=== PATIENT | female | born 1960 | race Caucasian/White ===

== ENCOUNTER 2021-08-14 15:17 | Inpatient (IN) | payer OTHER ==
[2021-08-14 15:47] VITALS: BMI 42.0
[2021-08-14] MEDS ORDERED: ACETAMINOPHEN 325 MG TABLET (FP) PO PRN ×2 (16:33)
[2021-08-14] MEDS ORDERED: LORazepam 1 MG TABLET PO PRN (16:33)
[2021-08-14] MEDS ORDERED: ONDANSETRON *ODT* 4 MG TABLET SL PRN (16:33)
[2021-08-14] MEDS ORDERED: NICOTINE POLACRILEX 2 MG GUM BUC PRN (16:33)
[2021-08-14] MEDS ORDERED: MAG HYDROX/AL HYDROX/SIMETH 30 ML UNIT-DOSE CUP PO PRN (16:33)
[2021-08-14] MEDS ORDERED: BISMUTH SUBSALICYLATE 524 MG/30 ML PO PRN (16:33)
[2021-08-14] MEDS ORDERED: MAGNESIUM HYDROX 2400MG/30ML ORAL SUSPENSION 30 ML CUP PO PRN (16:33)
[2021-08-14] MEDS ORDERED: DICYCLOMINE HCL 10 MG CAPSULE PO PRN (16:33)
[2021-08-14] MEDS ORDERED: MAGNESIUM CITRATE 300 ML BOTTLE PO PRN (16:33)
[2021-08-14] MEDS ORDERED: LOPERAMIDE HCL 2 MG CAPSULE PO PRN (16:33)
[2021-08-14] MEDS ORDERED: NICOTINE 10 MG CARTRIDGE (INHALER) IH PRN (16:33)
[2021-08-14] MEDS ORDERED: BENZOCAINE/MENTHOL (CHLORASEPTIC ) LOZENGE MM PRN (16:33)
[2021-08-14] MEDS: THIAMINE HCL 100 MG TABLET (FP) PO SCH (22:41)
[2021-08-14] MEDS: MELATONIN 5 MG TABLETS PO SCH (22:41)
[2021-08-14] MEDS: hydrOXYzine PAMOATE 25 MG CAPSULE (FP) PO PRN (22:42)
[2021-08-14] MEDS: LORazepam 2 MG TABLET PO SCH ×3 (22:43→23:11)
[2021-08-14] MEDS: METHOCARBAMOL 500 MG TABLET PO PRN (22:43)
[2021-08-15] MEDS: LORazepam 2 MG TABLET PO SCH ×2 (06:04→12:00)
[2021-08-15] MEDS ORDERED: methaDONE HCL 10 MG TABLET PO ONE (09:28)
[2021-08-15] MEDS ORDERED: methaDONE HCL 10 MG TABLET ONE (10:50)
[2021-08-15] MEDS: PRENATAL VITAMINS W/ FOLIC ACID TABLET (FP) PO SCH (10:51)
[2021-08-15] MEDS ORDERED: methaDONE HCL 40 MG DISPERSABLE TABLET ONE (10:51)
[2021-08-15] MEDS: amLODIPine BESYLATE 10 MG TABLET (FP) PO SCH (10:52)
[2021-08-15] MEDS: IBUPROFEN 600 MG TABLET (FP) PO PRN (10:52)
[2021-08-15 11:49] LABS: HEMATOCRIT 41.4 % (32.4-45.2); HEMOGLOBIN 13.8 GM/dL (10.7-15.3); MCH 31.7 pg (25.7-33.7); MCHC 33.3 g/dl (32.0-36.0); MEAN CELL VOLUME 94.9 fl (80-96); MEAN PLT VOLUME 8.4 fl (7.5-11.1); PLATELET COUNT 160 10^3/uL (134-434); RBC 4.36 M/mm3 (3.60-5.2); RDW 13.1 % (11.6-15.6); WHITE BLOOD COUNT 5.6 K/mm3 (4.0-10.0)
[2021-08-15 11:59] LABS: ALBUMIN 3.1 g/dl (3.4-5.0); BLOOD UREA NITROGEN 9.8 mg/dL (7-18); CALCIUM 8.5 mg/dL (8.5-10.1)
[2021-08-15 12:02] LABS: CREATININE 0.5 mg/dL (0.55-1.3)
[2021-08-15 12:04] LABS: BILIRUBIN,TOTAL 0.5 mg/dL (0.2-1); TOT PROT 6.6 g/dl (6.4-8.2)
[2021-08-15] MEDS ORDERED: ALBUTEROL SO4 0.083% IH SOL 2.5 MG/3 ML VIAL.NEB. NEB PRN (12:06)
[2021-08-15] MEDS: hydrOXYzine PAMOATE 25 MG CAPSULE (FP) PO PRN ×2 (14:01→18:10)
[2021-08-15] MEDS: LORazepam 1 MG TABLET PO SCH ×2 (18:10→23:00)
[2021-08-15] MEDS: IBUPROFEN 400 MG TABLET (FP) PO PRN (18:12)
[2021-08-15] MEDS: THIAMINE HCL 100 MG TABLET (FP) PO SCH (22:44)
[2021-08-15] MEDS: MELATONIN 5 MG TABLETS PO SCH (23:43)
[2021-08-16] MEDS ORDERED: methaDONE HCL 40 MG DISPERSABLE TABLET ONE (04:24)
[2021-08-16] MEDS ORDERED: methaDONE HCL 10 MG TABLET ONE (04:24)
[2021-08-16] MEDS: ALBUTEROL SO4 HFA INHALER IH PRN ×2 (05:29→10:36)
[2021-08-16] MEDS: LORazepam 1 MG TABLET PO SCH ×4 (05:30→22:33)
[2021-08-16] MEDS ORDERED: methaDONE HCL 40 MG DISPERSABLE TABLET PO SCH (06:00)
[2021-08-16] MEDS: PRENATAL VITAMINS W/ FOLIC ACID TABLET (FP) PO SCH (10:31)
[2021-08-16] MEDS: amLODIPine BESYLATE 10 MG TABLET (FP) PO SCH (10:32)
[2021-08-16] MEDS: hydrOXYzine PAMOATE 25 MG CAPSULE (FP) PO PRN ×2 (10:32→22:32)
[2021-08-16] MEDS: METHOCARBAMOL 500 MG TABLET PO PRN (10:32)
[2021-08-16] MEDS: IBUPROFEN 600 MG TABLET (FP) PO PRN (18:15)
[2021-08-16] MEDS: THIAMINE HCL 100 MG TABLET (FP) PO SCH (22:32)
[2021-08-16] MEDS: MELATONIN 5 MG TABLETS PO SCH (22:33)
[2021-08-17] MEDS ORDERED: LORazepam 0.5 MG TABLET PO PRN
[2021-08-17] MEDS ORDERED: methaDONE HCL 10 MG TABLET ONE (04:45)
[2021-08-17] MEDS ORDERED: methaDONE HCL 40 MG DISPERSABLE TABLET ONE (04:45)
[2021-08-17] MEDS: LORazepam 0.5 MG TABLET PO SCH ×4 (05:40→22:44)
[2021-08-17] MEDS: METHOCARBAMOL 500 MG TABLET PO PRN ×2 (05:42→10:56)
[2021-08-17] MEDS: PRENATAL VITAMINS W/ FOLIC ACID TABLET (FP) PO SCH (10:26)
[2021-08-17] MEDS: amLODIPine BESYLATE 10 MG TABLET (FP) PO SCH (10:26)
[2021-08-17] MEDS: hydrOXYzine PAMOATE 25 MG CAPSULE (FP) PO PRN ×2 (10:26→22:44)
[2021-08-17] MEDS: IBUPROFEN 600 MG TABLET (FP) PO PRN ×2 (10:29→22:44)
[2021-08-17] MEDS: THIAMINE HCL 100 MG TABLET (FP) PO SCH (22:44)
[2021-08-17] MEDS: MELATONIN 5 MG TABLETS PO SCH (22:44)
[2021-08-17] MEDS: ALBUTEROL SO4 HFA INHALER IH PRN (22:47)
[2021-08-18] MEDS ORDERED: methaDONE HCL 40 MG DISPERSABLE TABLET ONE (04:17)
[2021-08-18] MEDS ORDERED: methaDONE HCL 10 MG TABLET ONE (04:17)
[2021-08-18] MEDS ORDERED: LORazepam 0.5 MG TABLET PO ONE (05:00)
[2021-08-18] MEDS: ALBUTEROL SO4 HFA INHALER IH PRN (06:02)
[2021-08-18] MEDS: METHOCARBAMOL 500 MG TABLET PO PRN ×2 (09:55→22:39)
[2021-08-18] MEDS: hydrOXYzine PAMOATE 25 MG CAPSULE (FP) PO PRN ×3 (09:55→22:38)
[2021-08-18] MEDS: amLODIPine BESYLATE 10 MG TABLET (FP) PO SCH (09:55)
[2021-08-18] MEDS: PRENATAL VITAMINS W/ FOLIC ACID TABLET (FP) PO SCH (09:55)
[2021-08-18] MEDS: IBUPROFEN 600 MG TABLET (FP) PO PRN (10:57)
[2021-08-18] MEDS: IBUPROFEN 400 MG TABLET (FP) PO PRN (17:43)
[2021-08-18] MEDS: THIAMINE HCL 100 MG TABLET (FP) PO SCH (22:38)
[2021-08-18] MEDS: MELATONIN 5 MG TABLETS PO SCH (23:29)
[2021-08-19] MEDS ORDERED: methaDONE HCL 40 MG DISPERSABLE TABLET ONE (04:03)
[2021-08-19] MEDS ORDERED: methaDONE HCL 10 MG TABLET ONE (04:03)
[2021-08-19 09:23] VITALS: BP 136/80; PULSE 73; TEMP 97.5
[2021-08-19] MEDS: hydrOXYzine PAMOATE 25 MG CAPSULE (FP) PO PRN (11:11)
[2021-08-19] MEDS: amLODIPine BESYLATE 10 MG TABLET (FP) PO SCH (11:11)
[2021-08-19] MEDS: PRENATAL VITAMINS W/ FOLIC ACID TABLET (FP) PO SCH (11:11)
== END 2021-08-19 12:22 | disposition other institution (70) | DRG 773 ==
LOC: YASAS 15:17 → Y6N 19:56
PROVIDERS: ADMIT Allergy & Immunology; ATTEND Surgery
PROC: HZ2ZZZZ Detoxification Services for Substance Abuse Treatment (ICD-10-PCS; principal; 2021-08-14)
DX: F10.230 Alcohol dependence with withdrawal, uncomplicated (principal); F11.20 Opioid dependence, uncomplicated; F14.10 Cocaine abuse, uncomplicated; F17.210 Nicotine dependence, cigarettes, uncomplicated; F31.9 Bipolar disorder, unspecified; F41.9 Anxiety disorder, unspecified; I10 Essential (primary) hypertension; J45.40 Moderate persistent asthma, uncomplicated; J44.9 Chronic obstructive pulmonary disease, unspecified; M54.50 Low back pain, unspecified; G89.29 Other chronic pain; E66.01 Morbid (severe) obesity due to excess calories; Z68.41 Body mass index [BMI] 40.0-44.9, adult; Z99.89 Dependence on other enabling machines and devices
CPT/HCPCS: 36415; 80053; 85027; 86780; C9803-CS; U0003; U0005

== ENCOUNTER 2021-08-18 16:21 | Inpatient (IN) | payer OTHER ==
[2021-08-18] MEDS ORDERED: MAG HYDROX/AL HYDROX/SIMETH 30 ML UNIT-DOSE CUP PO PRN (16:27)
[2021-08-18] MEDS ORDERED: guaiFENesin 200 MG/10 ML 10 ML UNIT-DOSE CUPS PO PRN (16:27)
[2021-08-18] MEDS ORDERED: MAGNESIUM CITRATE 300 ML BOTTLE PO PRN (16:27)
[2021-08-18] MEDS ORDERED: hydrOXYzine PAMOATE 25 MG CAPSULE (FP) PO PRN (16:27)
[2021-08-18] MEDS ORDERED: LOPERAMIDE HCL 2 MG CAPSULE PO PRN (16:27)
[2021-08-18] MEDS ORDERED: MAGNESIUM HYDROX 2400MG/30ML ORAL SUSPENSION 30 ML CUP PO PRN (16:27)
[2021-08-18] MEDS ORDERED: NICOTINE POLACRILEX 2 MG GUM BC PRN (16:27)
[2021-08-18] MEDS ORDERED: IBUPROFEN 400 MG TABLET (FP) PO PRN (16:27)
[2021-08-18] MEDS ORDERED: NICOTINE 10 MG CARTRIDGE (INHALER) IH PRN (16:27)
[2021-08-18] MEDS ORDERED: ACETAMINOPHEN 325 MG TABLET (FP) PO PRN (16:27)
[2021-08-18] MEDS ORDERED: ALBUTEROL SO4 HFA INHALER IH PRN (16:29)
[2021-08-18] MEDS ORDERED: ALBUTEROL SO4 0.083% IH SOL 2.5 MG/3 ML VIAL.NEB. NEB PRN (16:32)
[2021-08-18] MEDS ORDERED: MELATONIN 5 MG TABLETS PO SCH (22:00)
[2021-08-18] MEDS ORDERED: THIAMINE HCL 100 MG TABLET (FP) PO SCH (22:00)
[2021-08-19] MEDS ORDERED: methaDONE HCL 40 MG DISPERSABLE TABLET PO SCH (06:00)
[2021-08-19] MEDS ORDERED: amLODIPine BESYLATE 10 MG TABLET (FP) PO SCH (10:00)
[2021-08-19] MEDS ORDERED: PRENATAL VITAMINS W/ FOLIC ACID TABLET (FP) PO SCH (10:00)
[2021-08-19] MEDS ORDERED: ALBUTEROL SO4 0.083% IH SOL 2.5 MG/3 ML VIAL.NEB. NEB PRN (12:02)
[2021-08-19] MEDS ORDERED: MAG HYDROX/AL HYDROX/SIMETH 30 ML UNIT-DOSE CUP PO PRN (12:03)
[2021-08-19] MEDS ORDERED: MAGNESIUM CITRATE 300 ML BOTTLE PO PRN (12:03)
[2021-08-19] MEDS ORDERED: MAGNESIUM HYDROX 2400MG/30ML ORAL SUSPENSION 30 ML CUP PO PRN (12:03)
[2021-08-19] MEDS ORDERED: LOPERAMIDE HCL 2 MG CAPSULE PO PRN (12:03)
[2021-08-19] MEDS ORDERED: NICOTINE POLACRILEX 2 MG GUM BUC PRN (12:03)
[2021-08-19] MEDS: ALBUTEROL SO4 HFA INHALER IH PRN ×2 (14:23→21:18)
[2021-08-19] MEDS: NICOTINE 10 MG CARTRIDGE (INHALER) IH PRN (14:24)
[2021-08-19] MEDS: IBUPROFEN 400 MG TABLET (FP) PO PRN (17:25)
[2021-08-19] MEDS: MELATONIN 5 MG TABLETS PO SCH (21:16)
[2021-08-19] MEDS: THIAMINE HCL 100 MG TABLET (FP) PO SCH (21:16)
[2021-08-19] MEDS: hydrOXYzine PAMOATE 25 MG CAPSULE (FP) PO PRN (21:17)
[2021-08-20] MEDS ORDERED: methaDONE HCL 40 MG DISPERSABLE TABLET PO SCH (06:00)
[2021-08-20] MEDS ORDERED: methaDONE HCL 10 MG TABLET ONE (06:11)
[2021-08-20] MEDS ORDERED: methaDONE HCL 40 MG DISPERSABLE TABLET ONE (06:11)
[2021-08-20] MEDS: ACETAMINOPHEN 325 MG TABLET (FP) PO PRN ×2 (06:12→11:05)
[2021-08-20] MEDS ORDERED: amLODIPine BESYLATE 10 MG TABLET (FP) PO SCH (10:00)
[2021-08-20] MEDS: PRENATAL VITAMINS W/ FOLIC ACID TABLET (FP) PO SCH (11:03)
[2021-08-20] MEDS: amLODIPine BESYLATE 10 MG TABLET (FP) PO SCH (11:03)
[2021-08-20] MEDS: LIDOCAINE 5% TOPICAL PATCH TP SCH (12:49)
[2021-08-20] MEDS: IBUPROFEN 400 MG TABLET (FP) PO PRN ×2 (14:34→21:05)
[2021-08-20] MEDS: MELATONIN 5 MG TABLETS PO SCH (21:06)
[2021-08-20] MEDS: THIAMINE HCL 100 MG TABLET (FP) PO SCH (21:06)
[2021-08-20] MEDS: METHOCARBAMOL 500 MG TABLET PO PRN (21:06)
[2021-08-20] MEDS: LIDOCAINE PATCH REMOVAL MC SCH (21:06)
[2021-08-20] MEDS: METHYL SALICYLATE/MENTHOL OINT 30 GM TUBE TP SCH (21:06)
[2021-08-21] MEDS ORDERED: methaDONE HCL 10 MG TABLET ONE (04:19)
[2021-08-21] MEDS ORDERED: methaDONE HCL 40 MG DISPERSABLE TABLET ONE (04:19)
[2021-08-21] MEDS: METHOCARBAMOL 500 MG TABLET PO PRN ×3 (06:12→21:29)
[2021-08-21] MEDS: IBUPROFEN 400 MG TABLET (FP) PO PRN ×3 (06:12→21:29)
[2021-08-21] MEDS: LIDOCAINE 5% TOPICAL PATCH TP SCH (10:43)
[2021-08-21] MEDS: amLODIPine BESYLATE 10 MG TABLET (FP) PO SCH (10:44)
[2021-08-21] MEDS: PRENATAL VITAMINS W/ FOLIC ACID TABLET (FP) PO SCH (10:44)
[2021-08-21] MEDS: ACETAMINOPHEN 325 MG TABLET (FP) PO PRN (10:45)
[2021-08-21] MEDS: hydrOXYzine PAMOATE 25 MG CAPSULE (FP) PO PRN ×2 (10:46→14:45)
[2021-08-21] MEDS: LIDOCAINE PATCH REMOVAL MC SCH (21:28)
[2021-08-21] MEDS: MELATONIN 5 MG TABLETS PO SCH (21:28)
[2021-08-21] MEDS: THIAMINE HCL 100 MG TABLET (FP) PO SCH (21:29)
[2021-08-21] MEDS: METHYL SALICYLATE/MENTHOL OINT 30 GM TUBE TP SCH (21:30)
[2021-08-22] MEDS: ALBUTEROL SO4 HFA INHALER IH PRN ×2 (00:30→11:03)
[2021-08-22] MEDS: hydrOXYzine PAMOATE 25 MG CAPSULE (FP) PO PRN (00:54)
[2021-08-22] MEDS ORDERED: methaDONE HCL 10 MG TABLET ONE (04:11)
[2021-08-22] MEDS ORDERED: methaDONE HCL 40 MG DISPERSABLE TABLET ONE (04:11)
[2021-08-22] MEDS: PRENATAL VITAMINS W/ FOLIC ACID TABLET (FP) PO SCH (11:01)
[2021-08-22] MEDS: IBUPROFEN 400 MG TABLET (FP) PO PRN (11:01)
[2021-08-22] MEDS: amLODIPine BESYLATE 10 MG TABLET (FP) PO SCH (11:01)
[2021-08-22] MEDS: METHOCARBAMOL 500 MG TABLET PO PRN (11:01)
[2021-08-22] MEDS: LIDOCAINE 5% TOPICAL PATCH TP SCH (11:02)
[2021-08-22] MEDS: ACETAMINOPHEN 325 MG TABLET (FP) PO PRN ×2 (13:49→21:18)
[2021-08-22] MEDS: LIDOCAINE PATCH REMOVAL MC SCH (21:17)
[2021-08-22] MEDS: MELATONIN 5 MG TABLETS PO SCH (21:17)
[2021-08-22] MEDS: METHYL SALICYLATE/MENTHOL OINT 30 GM TUBE TP SCH (21:17)
[2021-08-22] MEDS: THIAMINE HCL 100 MG TABLET (FP) PO SCH (21:17)
[2021-08-23] MEDS: IBUPROFEN 400 MG TABLET (FP) PO PRN ×2 (01:37→10:55)
[2021-08-23] MEDS: hydrOXYzine PAMOATE 25 MG CAPSULE (FP) PO PRN ×2 (01:37→10:56)
[2021-08-23] MEDS ORDERED: methaDONE HCL 40 MG DISPERSABLE TABLET ONE (03:16)
[2021-08-23] MEDS ORDERED: methaDONE HCL 10 MG TABLET ONE (03:16)
[2021-08-23] MEDS: ALBUTEROL SO4 HFA INHALER IH PRN ×2 (06:08→10:56)
[2021-08-23] MEDS: amLODIPine BESYLATE 10 MG TABLET (FP) PO SCH (10:54)
[2021-08-23] MEDS: METHOCARBAMOL 500 MG TABLET PO PRN ×2 (10:54→21:36)
[2021-08-23] MEDS: PRENATAL VITAMINS W/ FOLIC ACID TABLET (FP) PO SCH (10:54)
[2021-08-23] MEDS: LIDOCAINE 5% TOPICAL PATCH TP SCH (10:54)
[2021-08-23] MEDS: MELATONIN 5 MG TABLETS PO SCH (21:33)
[2021-08-23] MEDS: LIDOCAINE PATCH REMOVAL MC SCH (21:33)
[2021-08-23] MEDS: THIAMINE HCL 100 MG TABLET (FP) PO SCH (21:33)
[2021-08-23] MEDS: METHYL SALICYLATE/MENTHOL OINT 30 GM TUBE TP SCH (21:34)
[2021-08-24] MEDS ORDERED: methaDONE HCL 10 MG TABLET ONE (05:20)
[2021-08-24] MEDS ORDERED: methaDONE HCL 40 MG DISPERSABLE TABLET ONE (05:20)
[2021-08-24] MEDS: METHOCARBAMOL 500 MG TABLET PO PRN ×3 (06:42→22:24)
[2021-08-24] MEDS: hydrOXYzine PAMOATE 25 MG CAPSULE (FP) PO PRN ×3 (06:42→22:25)
[2021-08-24] MEDS: LIDOCAINE 5% TOPICAL PATCH TP SCH (11:16)
[2021-08-24] MEDS: PRENATAL VITAMINS W/ FOLIC ACID TABLET (FP) PO SCH (11:17)
[2021-08-24] MEDS: amLODIPine BESYLATE 10 MG TABLET (FP) PO SCH (11:17)
[2021-08-24] MEDS: IBUPROFEN 400 MG TABLET (FP) PO PRN ×2 (15:46→22:25)
[2021-08-24] MEDS: LIDOCAINE PATCH REMOVAL MC SCH (22:24)
[2021-08-24] MEDS: METHYL SALICYLATE/MENTHOL OINT 30 GM TUBE TP SCH (22:24)
[2021-08-24] MEDS: MELATONIN 5 MG TABLETS PO SCH (22:24)
[2021-08-24] MEDS: THIAMINE HCL 100 MG TABLET (FP) PO SCH (22:25)
[2021-08-25] MEDS ORDERED: methaDONE HCL 10 MG TABLET ONE (05:23)
[2021-08-25] MEDS ORDERED: methaDONE HCL 40 MG DISPERSABLE TABLET ONE (05:24)
[2021-08-25] MEDS: hydrOXYzine PAMOATE 25 MG CAPSULE (FP) PO PRN ×2 (06:35→18:50)
[2021-08-25] MEDS: METHOCARBAMOL 500 MG TABLET PO PRN ×2 (06:35→18:50)
[2021-08-25] MEDS: ALBUTEROL SO4 HFA INHALER IH PRN ×2 (06:37→18:50)
[2021-08-25] MEDS: LIDOCAINE 5% TOPICAL PATCH TP SCH (11:01)
[2021-08-25] MEDS: PRENATAL VITAMINS W/ FOLIC ACID TABLET (FP) PO SCH (11:02)
[2021-08-25] MEDS: amLODIPine BESYLATE 10 MG TABLET (FP) PO SCH (11:03)
[2021-08-25] MEDS: IBUPROFEN 400 MG TABLET (FP) PO PRN (11:04)
[2021-08-25] MEDS: LIDOCAINE PATCH REMOVAL MC SCH (21:56)
[2021-08-25] MEDS: THIAMINE HCL 100 MG TABLET (FP) PO SCH (21:56)
[2021-08-25] MEDS: MELATONIN 5 MG TABLETS PO SCH (21:56)
[2021-08-25] MEDS: METHYL SALICYLATE/MENTHOL OINT 30 GM TUBE TP SCH (21:56)
[2021-08-26] MEDS ORDERED: methaDONE HCL 40 MG DISPERSABLE TABLET ONE (03:42)
[2021-08-26] MEDS ORDERED: methaDONE HCL 10 MG TABLET ONE (03:42)
[2021-08-26] MEDS: hydrOXYzine PAMOATE 25 MG CAPSULE (FP) PO PRN ×2 (03:59→21:55)
[2021-08-26] MEDS: IBUPROFEN 400 MG TABLET (FP) PO PRN (03:59)
[2021-08-26] MEDS: PRENATAL VITAMINS W/ FOLIC ACID TABLET (FP) PO SCH (10:04)
[2021-08-26] MEDS: amLODIPine BESYLATE 10 MG TABLET (FP) PO SCH (10:04)
[2021-08-26] MEDS: LIDOCAINE 5% TOPICAL PATCH TP SCH (10:05)
[2021-08-26] MEDS: METHYL SALICYLATE/MENTHOL OINT 30 GM TUBE TP SCH (21:54)
[2021-08-26] MEDS: LIDOCAINE PATCH REMOVAL MC SCH (21:55)
[2021-08-26] MEDS: THIAMINE HCL 100 MG TABLET (FP) PO SCH (21:55)
[2021-08-26] MEDS: METHOCARBAMOL 500 MG TABLET PO PRN (21:55)
[2021-08-26] MEDS: MELATONIN 5 MG TABLETS PO SCH (21:56)
[2021-08-27] MEDS ORDERED: methaDONE HCL 10 MG TABLET PO SCH (06:15)
[2021-08-27] MEDS ORDERED: methaDONE HCL 10 MG TABLET ONE (06:24)
[2021-08-27] MEDS ORDERED: methaDONE HCL 40 MG DISPERSABLE TABLET ONE (06:24)
[2021-08-27] MEDS: ALBUTEROL SO4 HFA INHALER IH PRN ×2 (06:27→10:26)
[2021-08-27] MEDS: amLODIPine BESYLATE 10 MG TABLET (FP) PO SCH (10:24)
[2021-08-27] MEDS: PRENATAL VITAMINS W/ FOLIC ACID TABLET (FP) PO SCH (10:24)
[2021-08-27] MEDS: LIDOCAINE 5% TOPICAL PATCH TP SCH (10:24)
[2021-08-27] MEDS: METHOCARBAMOL 500 MG TABLET PO PRN ×2 (10:25→22:01)
[2021-08-27] MEDS: IBUPROFEN 400 MG TABLET (FP) PO PRN ×2 (10:25→17:10)
[2021-08-27] MEDS: LIDOCAINE PATCH REMOVAL MC SCH (22:01)
[2021-08-27] MEDS: METHYL SALICYLATE/MENTHOL OINT 30 GM TUBE TP SCH (22:01)
[2021-08-27] MEDS: THIAMINE HCL 100 MG TABLET (FP) PO SCH (22:01)
[2021-08-27] MEDS: hydrOXYzine PAMOATE 25 MG CAPSULE (FP) PO PRN (22:02)
[2021-08-27] MEDS: MELATONIN 5 MG TABLETS PO SCH (22:30)
[2021-08-28] MEDS ORDERED: methaDONE HCL 40 MG DISPERSABLE TABLET ONE (04:28)
[2021-08-28] MEDS ORDERED: methaDONE HCL 10 MG TABLET ONE (04:28)
[2021-08-28] MEDS: hydrOXYzine PAMOATE 25 MG CAPSULE (FP) PO PRN ×3 (06:16→21:24)
[2021-08-28] MEDS: ALBUTEROL SO4 HFA INHALER IH PRN ×3 (06:19→21:23)
[2021-08-28] MEDS: PRENATAL VITAMINS W/ FOLIC ACID TABLET (FP) PO SCH (10:52)
[2021-08-28] MEDS: METHOCARBAMOL 500 MG TABLET PO PRN ×2 (10:52→17:50)
[2021-08-28] MEDS: IBUPROFEN 400 MG TABLET (FP) PO PRN ×2 (10:52→21:25)
[2021-08-28] MEDS: amLODIPine BESYLATE 10 MG TABLET (FP) PO SCH (10:52)
[2021-08-28] MEDS: LIDOCAINE 5% TOPICAL PATCH TP SCH (10:54)
[2021-08-28] MEDS: THIAMINE HCL 100 MG TABLET (FP) PO SCH (21:24)
[2021-08-28] MEDS: LIDOCAINE PATCH REMOVAL MC SCH (21:24)
[2021-08-28] MEDS: METHYL SALICYLATE/MENTHOL OINT 30 GM TUBE TP SCH (21:24)
[2021-08-28] MEDS: MELATONIN 5 MG TABLETS PO SCH (21:24)
[2021-08-29] MEDS ORDERED: methaDONE HCL 40 MG DISPERSABLE TABLET ONE (05:22)
[2021-08-29] MEDS ORDERED: methaDONE HCL 10 MG TABLET ONE (05:22)
[2021-08-29] MEDS: LIDOCAINE 5% TOPICAL PATCH TP SCH (10:31)
[2021-08-29] MEDS: amLODIPine BESYLATE 10 MG TABLET (FP) PO SCH (10:32)
[2021-08-29] MEDS: IBUPROFEN 400 MG TABLET (FP) PO PRN ×2 (10:32→21:23)
[2021-08-29] MEDS: hydrOXYzine PAMOATE 25 MG CAPSULE (FP) PO PRN (10:32)
[2021-08-29] MEDS: METHOCARBAMOL 500 MG TABLET PO PRN ×2 (10:32→21:23)
[2021-08-29] MEDS: PRENATAL VITAMINS W/ FOLIC ACID TABLET (FP) PO SCH (10:32)
[2021-08-29] MEDS: ALBUTEROL SO4 HFA INHALER IH PRN ×2 (10:33→21:22)
[2021-08-29] MEDS: PRAZOSIN HCL 1 MG CAPSULE PO SCH (21:23)
[2021-08-29] MEDS: THIAMINE HCL 100 MG TABLET (FP) PO SCH (21:23)
[2021-08-29] MEDS: LIDOCAINE PATCH REMOVAL MC SCH (21:24)
[2021-08-29] MEDS: METHYL SALICYLATE/MENTHOL OINT 30 GM TUBE TP SCH (21:24)
[2021-08-29] MEDS: MELATONIN 5 MG TABLETS PO SCH (21:24)
[2021-08-30] MEDS ORDERED: methaDONE HCL 40 MG DISPERSABLE TABLET ONE (04:33)
[2021-08-30] MEDS ORDERED: methaDONE HCL 10 MG TABLET ONE (04:33)
[2021-08-30] MEDS: ALBUTEROL SO4 HFA INHALER IH PRN ×2 (05:38→21:09)
[2021-08-30] MEDS: amLODIPine BESYLATE 10 MG TABLET (FP) PO SCH (10:15)
[2021-08-30] MEDS: PRENATAL VITAMINS W/ FOLIC ACID TABLET (FP) PO SCH (10:15)
[2021-08-30] MEDS: LIDOCAINE 5% TOPICAL PATCH TP SCH (10:16)
[2021-08-30] MEDS: IBUPROFEN 400 MG TABLET (FP) PO PRN ×2 (10:20→21:10)
[2021-08-30] MEDS: NICOTINE 10 MG CARTRIDGE (INHALER) IH PRN (10:21)
[2021-08-30] MEDS: hydrOXYzine PAMOATE 25 MG CAPSULE (FP) PO PRN ×2 (14:58→21:11)
[2021-08-30] MEDS: METHOCARBAMOL 500 MG TABLET PO PRN ×2 (14:58→21:11)
[2021-08-30] MEDS: ACETAMINOPHEN 325 MG TABLET (FP) PO PRN (14:59)
[2021-08-30] MEDS: PRAZOSIN HCL 1 MG CAPSULE PO SCH (21:10)
[2021-08-30] MEDS: THIAMINE HCL 100 MG TABLET (FP) PO SCH (21:10)
[2021-08-30] MEDS: MELATONIN 5 MG TABLETS PO SCH (21:10)
[2021-08-30] MEDS: LIDOCAINE PATCH REMOVAL MC SCH (21:11)
[2021-08-30] MEDS: METHYL SALICYLATE/MENTHOL OINT 30 GM TUBE TP SCH (21:12)
[2021-08-31] MEDS ORDERED: methaDONE HCL 40 MG DISPERSABLE TABLET ONE (04:31)
[2021-08-31] MEDS ORDERED: methaDONE HCL 10 MG TABLET ONE (04:31)
[2021-08-31] MEDS: LIDOCAINE 5% TOPICAL PATCH TP SCH (11:01)
[2021-08-31] MEDS: amLODIPine BESYLATE 10 MG TABLET (FP) PO SCH (11:02)
[2021-08-31] MEDS: PRENATAL VITAMINS W/ FOLIC ACID TABLET (FP) PO SCH (11:02)
[2021-08-31] MEDS: IBUPROFEN 400 MG TABLET (FP) PO PRN ×2 (11:03→20:20)
[2021-08-31] MEDS: hydrOXYzine PAMOATE 25 MG CAPSULE (FP) PO PRN (11:03)
[2021-08-31] MEDS: METHOCARBAMOL 500 MG TABLET PO PRN ×2 (11:04→20:19)
[2021-08-31] MEDS: METHYL SALICYLATE/MENTHOL OINT 30 GM TUBE TP SCH (11:16)
[2021-08-31] MEDS: LIDOCAINE PATCH REMOVAL MC SCH (21:51)
[2021-08-31] MEDS: THIAMINE HCL 100 MG TABLET (FP) PO SCH (21:52)
[2021-08-31] MEDS: MELATONIN 5 MG TABLETS PO SCH (21:52)
[2021-08-31] MEDS: PRAZOSIN HCL 1 MG CAPSULE PO SCH (21:54)
[2021-09-01] MEDS ORDERED: methaDONE HCL 40 MG DISPERSABLE TABLET ONE (04:17)
[2021-09-01] MEDS ORDERED: methaDONE HCL 10 MG TABLET ONE (04:17)
[2021-09-01] MEDS: ACETAMINOPHEN 325 MG TABLET (FP) PO PRN (06:33)
[2021-09-01] MEDS: METHOCARBAMOL 500 MG TABLET PO PRN ×2 (06:34→22:31)
[2021-09-01] MEDS: hydrOXYzine PAMOATE 25 MG CAPSULE (FP) PO PRN ×2 (06:34→22:31)
[2021-09-01] MEDS: PRENATAL VITAMINS W/ FOLIC ACID TABLET (FP) PO SCH (10:45)
[2021-09-01] MEDS: LIDOCAINE 5% TOPICAL PATCH TP SCH (10:45)
[2021-09-01] MEDS: amLODIPine BESYLATE 10 MG TABLET (FP) PO SCH (10:46)
[2021-09-01] MEDS: IBUPROFEN 400 MG TABLET (FP) PO PRN (10:48)
[2021-09-01] MEDS: LIDOCAINE PATCH REMOVAL MC SCH (22:29)
[2021-09-01] MEDS: THIAMINE HCL 100 MG TABLET (FP) PO SCH (22:30)
[2021-09-01] MEDS: METHYL SALICYLATE/MENTHOL OINT 30 GM TUBE TP SCH (22:30)
[2021-09-01] MEDS: PRAZOSIN HCL 1 MG CAPSULE PO SCH (22:30)
[2021-09-01] MEDS: MELATONIN 5 MG TABLETS PO SCH (22:30)
[2021-09-02] MEDS ORDERED: methaDONE HCL 40 MG DISPERSABLE TABLET ONE (05:23)
[2021-09-02] MEDS ORDERED: methaDONE HCL 10 MG TABLET ONE (05:23)
[2021-09-02] MEDS: hydrOXYzine PAMOATE 25 MG CAPSULE (FP) PO PRN ×3 (06:13→21:28)
[2021-09-02] MEDS: PRENATAL VITAMINS W/ FOLIC ACID TABLET (FP) PO SCH (10:26)
[2021-09-02] MEDS: LIDOCAINE 5% TOPICAL PATCH TP SCH (10:27)
[2021-09-02] MEDS: amLODIPine BESYLATE 10 MG TABLET (FP) PO SCH (10:27)
[2021-09-02] MEDS: METHOCARBAMOL 500 MG TABLET PO PRN ×3 (10:28→21:27)
[2021-09-02] MEDS: IBUPROFEN 400 MG TABLET (FP) PO PRN ×2 (10:28→21:27)
[2021-09-02] MEDS: ALBUTEROL SO4 HFA INHALER IH PRN ×2 (10:29→21:26)
[2021-09-02] MEDS: GABAPENTIN 100 MG CAPSULE PO SCH ×2 (14:28→21:27)
[2021-09-02] MEDS: ACETAMINOPHEN 325 MG TABLET (FP) PO PRN (14:28)
[2021-09-02] MEDS: MELATONIN 5 MG TABLETS PO SCH (21:25)
[2021-09-02] MEDS: PRAZOSIN HCL 1 MG CAPSULE PO SCH (21:25)
[2021-09-02] MEDS: THIAMINE HCL 100 MG TABLET (FP) PO SCH (21:27)
[2021-09-02] MEDS: LIDOCAINE PATCH REMOVAL MC SCH (21:28)
[2021-09-02] MEDS: METHYL SALICYLATE/MENTHOL OINT 30 GM TUBE TP SCH (21:28)
[2021-09-03] MEDS ORDERED: methaDONE HCL 10 MG TABLET ONE (03:17)
[2021-09-03] MEDS ORDERED: methaDONE HCL 40 MG DISPERSABLE TABLET ONE (03:17)
[2021-09-03] MEDS: GABAPENTIN 100 MG CAPSULE PO SCH ×3 (05:48→21:23)
[2021-09-03] MEDS: ALBUTEROL SO4 HFA INHALER IH PRN ×2 (05:49→21:22)
[2021-09-03] MEDS: PRENATAL VITAMINS W/ FOLIC ACID TABLET (FP) PO SCH (10:46)
[2021-09-03] MEDS: LIDOCAINE 5% TOPICAL PATCH TP SCH (10:47)
[2021-09-03] MEDS: amLODIPine BESYLATE 10 MG TABLET (FP) PO SCH (10:48)
[2021-09-03] MEDS: METHOCARBAMOL 500 MG TABLET PO PRN ×2 (10:49→19:37)
[2021-09-03] MEDS: IBUPROFEN 400 MG TABLET (FP) PO PRN ×2 (10:49→19:37)
[2021-09-03] MEDS: THIAMINE HCL 100 MG TABLET (FP) PO SCH (21:23)
[2021-09-03] MEDS: PRAZOSIN HCL 1 MG CAPSULE PO SCH (21:23)
[2021-09-03] MEDS: MELATONIN 5 MG TABLETS PO SCH (21:23)
[2021-09-03] MEDS: METHYL SALICYLATE/MENTHOL OINT 30 GM TUBE TP SCH (21:24)
[2021-09-03] MEDS: LIDOCAINE PATCH REMOVAL MC SCH (22:00)
[2021-09-04] MEDS ORDERED: methaDONE HCL 10 MG TABLET ONE (03:18)
[2021-09-04] MEDS ORDERED: methaDONE HCL 40 MG DISPERSABLE TABLET ONE (03:18)
[2021-09-04] MEDS: GABAPENTIN 100 MG CAPSULE PO SCH ×3 (05:42→21:30)
[2021-09-04] MEDS: LIDOCAINE 5% TOPICAL PATCH TP SCH (10:29)
[2021-09-04] MEDS: amLODIPine BESYLATE 10 MG TABLET (FP) PO SCH (10:29)
[2021-09-04] MEDS: PRENATAL VITAMINS W/ FOLIC ACID TABLET (FP) PO SCH (10:29)
[2021-09-04] MEDS: METHOCARBAMOL 500 MG TABLET PO PRN ×2 (10:29→18:58)
[2021-09-04] MEDS: IBUPROFEN 400 MG TABLET (FP) PO PRN ×2 (10:29→18:58)
[2021-09-04] MEDS: hydrOXYzine PAMOATE 25 MG CAPSULE (FP) PO PRN ×3 (10:30→18:58)
[2021-09-04] MEDS ORDERED: NICOTINE 14 MG/24 HOURS TOPICAL PATCH TD SCH (12:45)
[2021-09-04] MEDS: NICOTINE 10 MG CARTRIDGE (INHALER) IH PRN (13:29)
[2021-09-04] MEDS: ALBUTEROL SO4 HFA INHALER IH PRN (21:30)
[2021-09-04] MEDS: METHYL SALICYLATE/MENTHOL OINT 30 GM TUBE TP SCH (21:30)
[2021-09-04] MEDS: THIAMINE HCL 100 MG TABLET (FP) PO SCH (21:30)
[2021-09-04] MEDS: PRAZOSIN HCL 1 MG CAPSULE PO SCH (21:30)
[2021-09-04] MEDS: LIDOCAINE PATCH REMOVAL MC SCH (21:30)
[2021-09-04] MEDS: MELATONIN 5 MG TABLETS PO SCH (21:30)
[2021-09-04] MEDS: guaiFENesin 200 MG/10 ML 10 ML UNIT-DOSE CUPS PO PRN (21:52)
[2021-09-05] MEDS ORDERED: methaDONE HCL 40 MG DISPERSABLE TABLET ONE (04:17)
[2021-09-05] MEDS ORDERED: methaDONE HCL 10 MG TABLET ONE (04:17)
[2021-09-05] MEDS: GABAPENTIN 100 MG CAPSULE PO SCH ×3 (05:37→21:28)
[2021-09-05] MEDS: PRENATAL VITAMINS W/ FOLIC ACID TABLET (FP) PO SCH (10:30)
[2021-09-05] MEDS: LIDOCAINE 5% TOPICAL PATCH TP SCH (10:31)
[2021-09-05] MEDS: amLODIPine BESYLATE 10 MG TABLET (FP) PO SCH (10:31)
[2021-09-05] MEDS: METHOCARBAMOL 500 MG TABLET PO PRN ×2 (10:32→20:33)
[2021-09-05] MEDS: IBUPROFEN 400 MG TABLET (FP) PO PRN (10:32)
[2021-09-05] MEDS: ALBUTEROL SO4 HFA INHALER IH PRN ×2 (11:41→16:24)
[2021-09-05] MEDS: THIAMINE HCL 100 MG TABLET (FP) PO SCH (21:28)
[2021-09-05] MEDS: PRAZOSIN HCL 1 MG CAPSULE PO SCH (21:28)
[2021-09-05] MEDS: MELATONIN 5 MG TABLETS PO SCH (21:29)
[2021-09-05] MEDS: LIDOCAINE PATCH REMOVAL MC SCH (21:29)
[2021-09-05] MEDS: METHYL SALICYLATE/MENTHOL OINT 30 GM TUBE TP SCH (21:31)
[2021-09-05] MEDS: guaiFENesin 200 MG/10 ML 10 ML UNIT-DOSE CUPS PO PRN (21:33)
[2021-09-06] MEDS ORDERED: methaDONE HCL 10 MG TABLET ONE (03:51)
[2021-09-06] MEDS ORDERED: methaDONE HCL 40 MG DISPERSABLE TABLET ONE (03:51)
[2021-09-06] MEDS: IBUPROFEN 400 MG TABLET (FP) PO PRN ×3 (06:00→21:46)
[2021-09-06] MEDS: GABAPENTIN 100 MG CAPSULE PO SCH ×3 (06:00→21:45)
[2021-09-06] MEDS: METHOCARBAMOL 500 MG TABLET PO PRN ×2 (06:00→17:11)
[2021-09-06] MEDS: hydrOXYzine PAMOATE 25 MG CAPSULE (FP) PO PRN ×2 (06:00→17:11)
[2021-09-06] MEDS: PRENATAL VITAMINS W/ FOLIC ACID TABLET (FP) PO SCH (10:43)
[2021-09-06] MEDS: LIDOCAINE 5% TOPICAL PATCH TP SCH (10:43)
[2021-09-06] MEDS: amLODIPine BESYLATE 10 MG TABLET (FP) PO SCH (10:43)
[2021-09-06] MEDS: SUVOREXANT 10 MG TABLET PO PRN (21:44)
[2021-09-06] MEDS: PRAZOSIN HCL 1 MG CAPSULE PO SCH (21:45)
[2021-09-06] MEDS: THIAMINE HCL 100 MG TABLET (FP) PO SCH (21:45)
[2021-09-06] MEDS: METHYL SALICYLATE/MENTHOL OINT 30 GM TUBE TP SCH (21:50)
[2021-09-07] MEDS: LIDOCAINE PATCH REMOVAL MC SCH ×2 (00:09→22:10)
[2021-09-07] MEDS ORDERED: methaDONE HCL 10 MG TABLET ONE (04:10)
[2021-09-07] MEDS ORDERED: methaDONE HCL 40 MG DISPERSABLE TABLET ONE (04:11)
[2021-09-07] MEDS: ALBUTEROL SO4 HFA INHALER IH PRN ×2 (06:00→16:14)
[2021-09-07] MEDS: GABAPENTIN 100 MG CAPSULE PO SCH ×3 (06:01→22:07)
[2021-09-07] MEDS: amLODIPine BESYLATE 10 MG TABLET (FP) PO SCH (09:26)
[2021-09-07] MEDS: LIDOCAINE 5% TOPICAL PATCH TP SCH (09:26)
[2021-09-07] MEDS: PRENATAL VITAMINS W/ FOLIC ACID TABLET (FP) PO SCH (09:26)
[2021-09-07] MEDS: METHOCARBAMOL 500 MG TABLET PO PRN (22:07)
[2021-09-07] MEDS: THIAMINE HCL 100 MG TABLET (FP) PO SCH (22:07)
[2021-09-07] MEDS: PRAZOSIN HCL 1 MG CAPSULE PO SCH (22:09)
[2021-09-07] MEDS: SUVOREXANT 10 MG TABLET PO PRN (22:09)
[2021-09-07] MEDS: METHYL SALICYLATE/MENTHOL OINT 30 GM TUBE TP SCH (22:10)
[2021-09-08] MEDS ORDERED: methaDONE HCL 10 MG TABLET ONE (05:53)
[2021-09-08] MEDS ORDERED: methaDONE HCL 40 MG DISPERSABLE TABLET ONE (05:53)
[2021-09-08] MEDS: hydrOXYzine PAMOATE 25 MG CAPSULE (FP) PO PRN ×3 (05:54→21:53)
[2021-09-08] MEDS: GABAPENTIN 100 MG CAPSULE PO SCH ×3 (05:54→21:53)
[2021-09-08] MEDS: amLODIPine BESYLATE 10 MG TABLET (FP) PO SCH (10:42)
[2021-09-08] MEDS: LIDOCAINE 5% TOPICAL PATCH TP SCH (10:42)
[2021-09-08] MEDS: PRENATAL VITAMINS W/ FOLIC ACID TABLET (FP) PO SCH (10:42)
[2021-09-08] MEDS: ALBUTEROL SO4 HFA INHALER IH PRN ×2 (16:05→21:51)
[2021-09-08] MEDS: METHOCARBAMOL 500 MG TABLET PO PRN (18:48)
[2021-09-08] MEDS: PRAZOSIN HCL 1 MG CAPSULE PO SCH (21:52)
[2021-09-08] MEDS: THIAMINE HCL 100 MG TABLET (FP) PO SCH (21:52)
[2021-09-08] MEDS: guaiFENesin 200 MG/10 ML 10 ML UNIT-DOSE CUPS PO PRN (21:52)
[2021-09-08] MEDS: METHYL SALICYLATE/MENTHOL OINT 30 GM TUBE TP SCH (21:53)
[2021-09-08] MEDS: LIDOCAINE PATCH REMOVAL MC SCH (21:53)
[2021-09-08] MEDS: SUVOREXANT 10 MG TABLET PO PRN (21:53)
[2021-09-09] MEDS ORDERED: methaDONE HCL 10 MG TABLET ONE (04:24)
[2021-09-09] MEDS ORDERED: methaDONE HCL 40 MG DISPERSABLE TABLET ONE (04:24)
[2021-09-09] MEDS: ALBUTEROL SO4 HFA INHALER IH PRN (05:48)
[2021-09-09] MEDS: GABAPENTIN 100 MG CAPSULE PO SCH ×3 (05:49→22:27)
[2021-09-09 07:47] VITALS: TEMP 97.7
[2021-09-09] MEDS: PRENATAL VITAMINS W/ FOLIC ACID TABLET (FP) PO SCH (10:30)
[2021-09-09] MEDS: LIDOCAINE 5% TOPICAL PATCH TP SCH (10:31)
[2021-09-09] MEDS: amLODIPine BESYLATE 10 MG TABLET (FP) PO SCH (10:31)
[2021-09-09] MEDS: METHOCARBAMOL 500 MG TABLET PO PRN ×2 (10:33→22:21)
[2021-09-09] MEDS: IBUPROFEN 400 MG TABLET (FP) PO PRN ×2 (10:33→22:21)
[2021-09-09] MEDS ORDERED: SUVOREXANT 10 MG TABLET PO PRN (22:00)
[2021-09-09] MEDS: THIAMINE HCL 100 MG TABLET (FP) PO SCH (22:21)
[2021-09-09] MEDS: hydrOXYzine PAMOATE 25 MG CAPSULE (FP) PO PRN (22:21)
[2021-09-09] MEDS: LIDOCAINE PATCH REMOVAL MC SCH (22:24)
[2021-09-09] MEDS: METHYL SALICYLATE/MENTHOL OINT 30 GM TUBE TP SCH (22:25)
[2021-09-09] MEDS: guaiFENesin 200 MG/10 ML 10 ML UNIT-DOSE CUPS PO PRN (22:29)
[2021-09-09] MEDS: PRAZOSIN HCL 1 MG CAPSULE PO SCH (23:46)
[2021-09-10] MEDS: ACETAMINOPHEN 325 MG TABLET (FP) PO PRN (03:31)
[2021-09-10] MEDS ORDERED: methaDONE HCL 10 MG TABLET ONE (03:56)
[2021-09-10] MEDS ORDERED: methaDONE HCL 40 MG DISPERSABLE TABLET ONE (03:56)
[2021-09-10] MEDS: GABAPENTIN 100 MG CAPSULE PO SCH (05:39)
[2021-09-10] MEDS: ALBUTEROL SO4 HFA INHALER IH PRN (09:30)
[2021-09-10] MEDS: PRENATAL VITAMINS W/ FOLIC ACID TABLET (FP) PO SCH (09:31)
[2021-09-10] MEDS: amLODIPine BESYLATE 10 MG TABLET (FP) PO SCH (09:31)
[2021-09-10] MEDS: IBUPROFEN 400 MG TABLET (FP) PO PRN (09:31)
[2021-09-10] MEDS: METHOCARBAMOL 500 MG TABLET PO PRN (09:32)
[2021-09-10] MEDS: hydrOXYzine PAMOATE 25 MG CAPSULE (FP) PO PRN (09:34)
[2021-09-10] MEDS: LIDOCAINE 5% TOPICAL PATCH TP SCH (09:35)
[2021-09-10 12:01] VITALS: BP 160/75; PULSE 99
== END 2021-09-10 10:20 | disposition home or self-care (01) | DRG 772 ==
LOC: YASAS 16:21 → Y5N 16:22 → UNDOADMIN 16:22 → Y5N 08-19 12:37
PROVIDERS: ADMIT Allergy & Immunology; ATTEND Psychiatry & Neurology Pain Medicine
PROC: HZ42ZZZ Group Counseling for Substance Abuse Treatment, Cognitive-Behavioral (ICD-10-PCS; principal; 2021-08-19)
DX: F10.20 Alcohol dependence, uncomplicated (principal); F11.20 Opioid dependence, uncomplicated; F14.20 Cocaine dependence, uncomplicated; F17.210 Nicotine dependence, cigarettes, uncomplicated; F31.9 Bipolar disorder, unspecified; F39 Unspecified mood [affective] disorder; F41.9 Anxiety disorder, unspecified; G62.9 Polyneuropathy, unspecified; E78.5 Hyperlipidemia, unspecified; I10 Essential (primary) hypertension; J44.9 Chronic obstructive pulmonary disease, unspecified; J45.20 Mild intermittent asthma, uncomplicated; M77.51 Other enthesopathy of right foot and ankle; E66.01 Morbid (severe) obesity due to excess calories; Z68.41 Body mass index [BMI] 40.0-44.9, adult; R76.11 Nonspecific reaction to tuberculin skin test without active tuberculosis; Z62.810 Personal history of physical and sexual abuse in childhood; Z99.89 Dependence on other enabling machines and devices; Z91.410 Personal history of adult physical and sexual abuse
CPT/HCPCS: 71046-TC-FY

== ENCOUNTER 2022-03-14 11:16 | Inpatient (IN) | payer OTHER ==
[2022-03-14 12:15] VITALS: BMI 47.2
[2022-03-14] MEDS ORDERED: NALOXONE HCL (KLOXXADO) 8 MG SPRAY NS PRN (13:45)
[2022-03-14] MEDS ORDERED: MAG HYDROX/AL HYDROX/SIMETH 30 ML UNIT-DOSE CUP PO PRN (13:45)
[2022-03-14] MEDS ORDERED: IBUPROFEN 600 MG TABLET (FP) PO PRN (13:45)
[2022-03-14] MEDS ORDERED: POLYETHYLENE GLYCOL (HEALTHYLAX) 3350 17 GM PACKET PO PRN (13:45)
[2022-03-14] MEDS ORDERED: MAGNESIUM HYDROX 2400MG/30ML ORAL SUSPENSION 30 ML CUP PO PRN (13:45)
[2022-03-14] MEDS ORDERED: ACETAMINOPHEN 325 MG TABLET (FP) PO PRN ×2 (13:45)
[2022-03-14] MEDS ORDERED: IBUPROFEN 400 MG TABLET (FP) PO PRN (13:45)
[2022-03-14] MEDS ORDERED: BISMUTH SUBSALICYLATE 262 MG/15 ML BTL PO PRN (13:45)
[2022-03-14] MEDS ORDERED: BENZOCAINE/MENTHOL (CHLORASEPTIC ) LOZENGE MM PRN (13:45)
[2022-03-14] MEDS ORDERED: diazePAM 5 MG TABLET PO PRN (13:45)
[2022-03-14] MEDS ORDERED: DICYCLOMINE HCL 10 MG CAPSULE PO PRN (13:45)
[2022-03-14] MEDS ORDERED: LOPERAMIDE HCL 2 MG CAPSULE PO PRN (13:45)
[2022-03-14] MEDS ORDERED: ONDANSETRON *ODT* 4 MG TABLET SL PRN (13:45)
[2022-03-14] MEDS: NICOTINE 21 MG/24 HOURS TOPICAL PATCH TD SCH (15:25)
[2022-03-14] MEDS: ALBUTEROL SO4 HFA INHALER IH SCH ×2 (15:25→22:03)
[2022-03-14] MEDS: NICOTINE 10 MG CARTRIDGE (INHALER) IH PRN (15:25)
[2022-03-14] MEDS: diazePAM 5 MG TABLET PO SCH ×2 (17:28→22:05)
[2022-03-14 18:17] LABS: HEMATOCRIT 44.1 % (32.4-45.2); HEMOGLOBIN 14.7 GM/dL (10.7-15.3); MCH 30.2 pg (25.7-33.7); MCHC 33.4 g/dl (32.0-36.0); MEAN CELL VOLUME 90.3 fl (80-96); MEAN PLT VOLUME 8.3 fl (7.5-11.1); PLATELET COUNT 289 10^3/uL (134-434); RBC 4.89 M/mm3 (3.60-5.2); RDW 13.8 % (11.6-15.6); WHITE BLOOD COUNT 11.6 K/mm3 (4.0-10.0)
[2022-03-14 18:19] LABS: ALBUMIN 3.2 g/dl (3.4-5.0); BLOOD UREA NITROGEN 15.3 mg/dL (7-18); CALCIUM 9.3 mg/dL (8.5-10.1)
[2022-03-14 18:22] LABS: CREATININE 0.9 mg/dL (0.55-1.3)
[2022-03-14 18:24] LABS: BILIRUBIN,TOTAL 0.4 mg/dL (0.2-1); TOT PROT 7.1 g/dl (6.4-8.2)
[2022-03-14] MEDS: PRAZOSIN HCL 1 MG CAPSULE PO SCH (22:04)
[2022-03-14] MEDS: MELATONIN 5 MG TABLETS PO SCH (22:04)
[2022-03-14] MEDS: THIAMINE HCL 100 MG TABLET (FP) PO SCH (22:04)
[2022-03-15] MEDS: ALBUTEROL SO4 HFA INHALER IH SCH ×4 (02:09→22:30)
[2022-03-15] MEDS: diazePAM 5 MG TABLET PO SCH ×4 (05:19→22:30)
[2022-03-15] MEDS: amLODIPine BESYLATE 10 MG TABLET (FP) PO SCH (10:53)
[2022-03-15] MEDS: PRENATAL VITAMINS W/ FOLIC ACID TABLET (FP) PO SCH (10:53)
[2022-03-15] MEDS: NICOTINE 21 MG/24 HOURS TOPICAL PATCH TD SCH (10:54)
[2022-03-15] MEDS ORDERED: methaDONE HCL 40 MG DISPERSABLE TABLET PO SCH (13:15)
[2022-03-15] MEDS: LACTULOSE 20 GM/30 ML UDC (FOR ORAL USE ONLY) PO SCH ×2 (13:33→22:29)
[2022-03-15] MEDS: METHOCARBAMOL 500 MG TABLET PO PRN (18:32)
[2022-03-15] MEDS: hydrOXYzine PAMOATE 25 MG CAPSULE (FP) PO PRN (18:32)
[2022-03-15] MEDS: THIAMINE HCL 100 MG TABLET (FP) PO SCH (22:29)
[2022-03-15] MEDS: MELATONIN 5 MG TABLETS PO SCH (22:29)
[2022-03-15] MEDS: PRAZOSIN HCL 1 MG CAPSULE PO SCH (22:30)
[2022-03-16] MEDS: ALBUTEROL SO4 HFA INHALER IH SCH ×4 (01:53→20:24)
[2022-03-16] MEDS: diazePAM 5 MG TABLET PO SCH ×3 (06:40→22:25)
[2022-03-16] MEDS: LACTULOSE 20 GM/30 ML UDC (FOR ORAL USE ONLY) PO SCH ×3 (06:40→22:26)
[2022-03-16] MEDS ORDERED: POTASSIUM CHLORIDE ORAL LIQUID 20 MEQ/15 ML PO ONE ×2 (10:00→14:00)
[2022-03-16] MEDS: NICOTINE 21 MG/24 HOURS TOPICAL PATCH TD SCH (10:24)
[2022-03-16] MEDS: amLODIPine BESYLATE 10 MG TABLET (FP) PO SCH (10:24)
[2022-03-16] MEDS: PRENATAL VITAMINS W/ FOLIC ACID TABLET (FP) PO SCH (10:24)
[2022-03-16] MEDS: METHOCARBAMOL 500 MG TABLET PO PRN ×2 (10:24→22:27)
[2022-03-16] MEDS: NICOTINE 10 MG CARTRIDGE (INHALER) IH PRN (10:27)
[2022-03-16] MEDS: guaiFENesin 600 MG TABLET.ER (FP) PO SCH ×2 (15:55→22:25)
[2022-03-16] MEDS: MELATONIN 5 MG TABLETS PO SCH (22:26)
[2022-03-16] MEDS: PRAZOSIN HCL 1 MG CAPSULE PO SCH (22:26)
[2022-03-16] MEDS: THIAMINE HCL 100 MG TABLET (FP) PO SCH (22:26)
[2022-03-16] MEDS: hydrOXYzine PAMOATE 25 MG CAPSULE (FP) PO PRN (22:27)
[2022-03-17] MEDS: diazePAM 5 MG TABLET PO SCH ×2 (05:17→18:55)
[2022-03-17] MEDS: LACTULOSE 20 GM/30 ML UDC (FOR ORAL USE ONLY) PO SCH ×3 (05:20→22:19)
[2022-03-17] MEDS: ALBUTEROL SO4 HFA INHALER IH SCH ×4 (06:04→20:33)
[2022-03-17] MEDS: amLODIPine BESYLATE 10 MG TABLET (FP) PO SCH (10:13)
[2022-03-17] MEDS: guaiFENesin 600 MG TABLET.ER (FP) PO SCH ×2 (10:13→22:18)
[2022-03-17] MEDS: NICOTINE 21 MG/24 HOURS TOPICAL PATCH TD SCH (10:13)
[2022-03-17] MEDS: PRENATAL VITAMINS W/ FOLIC ACID TABLET (FP) PO SCH (10:13)
[2022-03-17] MEDS: METHOCARBAMOL 500 MG TABLET PO PRN ×2 (10:13→22:19)
[2022-03-17] MEDS: MELATONIN 5 MG TABLETS PO SCH (22:18)
[2022-03-17] MEDS: PRAZOSIN HCL 1 MG CAPSULE PO SCH (22:18)
[2022-03-17] MEDS: THIAMINE HCL 100 MG TABLET (FP) PO SCH (22:18)
[2022-03-17] MEDS: hydrOXYzine PAMOATE 25 MG CAPSULE (FP) PO PRN (22:19)
[2022-03-18] MEDS: ALBUTEROL SO4 HFA INHALER IH SCH ×2 (02:05→09:35)
[2022-03-18] MEDS: LACTULOSE 20 GM/30 ML UDC (FOR ORAL USE ONLY) PO SCH (05:03)
[2022-03-18] MEDS ORDERED: diazePAM 5 MG TABLET PO ONE (06:00)
[2022-03-18] MEDS: amLODIPine BESYLATE 10 MG TABLET (FP) PO SCH (09:30)
[2022-03-18] MEDS: METHOCARBAMOL 500 MG TABLET PO PRN (09:30)
[2022-03-18] MEDS: PRENATAL VITAMINS W/ FOLIC ACID TABLET (FP) PO SCH (09:30)
[2022-03-18] MEDS: guaiFENesin 600 MG TABLET.ER (FP) PO SCH (09:31)
[2022-03-18] MEDS: NICOTINE 10 MG CARTRIDGE (INHALER) IH PRN (09:35)
[2022-03-18] MEDS: NICOTINE 21 MG/24 HOURS TOPICAL PATCH TD SCH (10:23)
[2022-03-18 10:55] VITALS: BP 161/85; PULSE 105; RESP 16; TEMP 98.2
== END 2022-03-18 11:15 | disposition other institution (70) | DRG 773 ==
LOC: YASAS 11:16 → Y6N 14:09
PROVIDERS: ADMIT Allergy & Immunology; ATTEND Surgery
PROC: HZ2ZZZZ Detoxification Services for Substance Abuse Treatment (ICD-10-PCS; principal; 2022-03-14)
DX: F10.230 Alcohol dependence with withdrawal, uncomplicated (principal); F11.20 Opioid dependence, uncomplicated; F14.20 Cocaine dependence, uncomplicated; F31.9 Bipolar disorder, unspecified; F19.280 Other psychoactive substance dependence with psychoactive substance-induced anxiety disorder; F19.282 Other psychoactive substance dependence with psychoactive substance-induced sleep disorder; I10 Essential (primary) hypertension; J45.909 Unspecified asthma, uncomplicated; E11.9 Type 2 diabetes mellitus without complications; Z79.84 Long term (current) use of oral hypoglycemic drugs; R76.11 Nonspecific reaction to tuberculin skin test without active tuberculosis; R79.89 Other specified abnormal findings of blood chemistry; E66.01 Morbid (severe) obesity due to excess calories; Z68.42 Body mass index [BMI] 45.0-49.9, adult; Z87.891 Personal history of nicotine dependence; Z99.89 Dependence on other enabling machines and devices
CPT/HCPCS: 36415; 71046-TC-FY; 80053; 82140; 83036; 84132; 85027; 86780; 93005; 93010; C9803-CS; U0003; U0005

== ENCOUNTER 2022-12-10 12:32 | Inpatient (IN) | payer OTHER ==
[2022-12-10 15:12] VITALS: TEMP 97.5; BMI 47.2
[2022-12-10] MEDS ORDERED: guaiFENesin 600 MG TABLET.ER (FP) PO PRN (16:52)
[2022-12-10] MEDS ORDERED: hydrOXYzine PAMOATE 25 MG CAPSULE (FP) PO PRN (16:52)
[2022-12-10] MEDS ORDERED: POLYETHYLENE GLYCOL (HEALTHYLAX) 3350 17 GM PACKET PO PRN (16:52)
[2022-12-10] MEDS ORDERED: NALOXONE HCL 0.4 MG/ML VIAL IM PRN (16:52)
[2022-12-10] MEDS ORDERED: LOPERAMIDE HCL 2 MG CAPSULE PO PRN (16:52)
[2022-12-10] MEDS ORDERED: BENZOCAINE/MENTHOL (CHLORASEPTIC ) LOZENGE MM PRN (16:52)
[2022-12-10] MEDS ORDERED: ACETAMINOPHEN 325 MG TABLET (FP) PO PRN (16:52)
[2022-12-10] MEDS ORDERED: DICYCLOMINE HCL 10 MG CAPSULE PO PRN (16:52)
[2022-12-10] MEDS ORDERED: MAGNESIUM HYDROX 2400MG/30ML ORAL SUSPENSION 30 ML CUP PO PRN (16:52)
[2022-12-10] MEDS ORDERED: MAG HYDROX/AL HYDROX/SIMETH 30 ML UNIT-DOSE CUP PO PRN (16:52)
[2022-12-10] MEDS ORDERED: METHOCARBAMOL 500 MG TABLET PO PRN (16:52)
[2022-12-10] MEDS ORDERED: BENZONATATE 200 MG CAPSULE PO PRN (16:52)
[2022-12-10] MEDS ORDERED: NALOXONE HCL (KLOXXADO) 8 MG SPRAY NS PRN (16:52)
[2022-12-10] MEDS ORDERED: IBUPROFEN 600 MG TABLET (FP) PO PRN (16:52)
[2022-12-10] MEDS ORDERED: IBUPROFEN 400 MG TABLET (FP) PO PRN (16:52)
[2022-12-10] MEDS ORDERED: ONDANSETRON *ODT* 4 MG TABLET SL PRN (16:52)
[2022-12-10] MEDS ORDERED: diazePAM 5 MG TABLET PO PRN (16:52)
[2022-12-10] MEDS ORDERED: BISMUTH SUBSALICYLATE 524 MG/30 ML PO PRN (16:52)
[2022-12-10 18:11] VITALS: BP 143/82
[2022-12-10] MEDS: predniSONE 20 MG TABLET (UD) PO SCH (18:18)
[2022-12-10] MEDS ORDERED: ALBUTEROL SO4 2.5/IPRATROPIUM 0.5 INH SOL 3 ML VIAL.NEB. NEB ONE (18:30)
[2022-12-10] MEDS ORDERED: ALBUTEROL SO4 HFA INHALER IH PRN (19:52)
[2022-12-10] MEDS ORDERED: guaiFENesin 200 MG/10 ML 10 ML UNIT-DOSE CUPS PO PRN (20:00)
[2022-12-10 21:05] VITALS: PULSE 82; RESP 20
[2022-12-10] MEDS ORDERED: THIAMINE HCL 100 MG TABLET (FP) PO SCH (22:00)
[2022-12-10] MEDS ORDERED: MELATONIN 5 MG TABLETS PO SCH (22:00)
[2022-12-10] MEDS: BUDESONIDE/FORMETEROL FUMARATE 160/4.5 mcg INHALER IH SCH (22:55)
[2022-12-10] MEDS: diazePAM 5 MG TABLET PO SCH (22:55)
[2022-12-11] MEDS: diazePAM 5 MG TABLET PO SCH ×3 (06:00→17:55)
[2022-12-11] MEDS: metFORMIN HCL 500 MG TABLET (FP) PO SCH ×2 (06:29→17:55)
[2022-12-11] MEDS ORDERED: amLODIPine BESYLATE 10 MG TABLET (FP) PO SCH (10:00)
[2022-12-11] MEDS ORDERED: PRENATAL VITAMINS W/ FOLIC ACID TABLET (FP) PO SCH (10:00)
[2022-12-11] MEDS ORDERED: HYDROCHLOROTHIAZIDE 12.5 MG CAPSULE (FP) PO SCH (10:00)
[2022-12-11] MEDS: predniSONE 20 MG TABLET (UD) PO SCH (10:36)
[2022-12-11] MEDS: BUDESONIDE/FORMETEROL FUMARATE 160/4.5 mcg INHALER IH SCH (10:37)
[2022-12-12] MEDS ORDERED: diazePAM 5 MG TABLET PO SCH (06:00)
[2022-12-13] MEDS ORDERED: diazePAM 5 MG TABLET PO SCH (06:00)
[2022-12-14] MEDS ORDERED: diazePAM 5 MG TABLET PO ONE (06:00)
== END 2022-12-11 18:30 | disposition short-term general hospital (02) | DRG 773 ==
LOC: YASAS 12:32 → Y3N 17:11
PROVIDERS: ADMIT Allergy & Immunology; ATTEND Surgery
PROC: HZ2ZZZZ Detoxification Services for Substance Abuse Treatment (ICD-10-PCS; principal; 2022-12-10)
DX: F10.230 Alcohol dependence with withdrawal, uncomplicated (principal); F11.20 Opioid dependence, uncomplicated; F14.10 Cocaine abuse, uncomplicated; F17.210 Nicotine dependence, cigarettes, uncomplicated; F31.9 Bipolar disorder, unspecified; J45.901 Unspecified asthma with (acute) exacerbation; I10 Essential (primary) hypertension; R73.03 Prediabetes; E66.01 Morbid (severe) obesity due to excess calories; Z68.42 Body mass index [BMI] 45.0-49.9, adult; Z86.11 Personal history of tuberculosis
CPT/HCPCS: 87635; 94640

== ENCOUNTER 2022-12-10 22:04 | Inpatient (IN) | payer OTHER ==
[2022-12-10] MEDS ORDERED: methylPREDNISolone NA SUCC 125 MG/2 ML VIAL IVPB ONE (23:42)
[2022-12-10] MEDS ORDERED: methylPREDNISolone NA SUCC 125 MG/2 ML VIAL ONE (23:45)
[2022-12-10] MEDS: ALBUTEROL SO4 2.5/IPRATROPIUM 0.5 INH SOL 3 ML VIAL.NEB. NEB SCH (23:50)
[2022-12-11] MEDS: ALBUTEROL SO4 2.5/IPRATROPIUM 0.5 INH SOL 3 ML VIAL.NEB. NEB SCH ×7 (00:03→22:41)
[2022-12-11 00:32] LABS: BASO % 0.8 % (0-2.0); EOS % 0.1 % (0-4.5); HEMATOCRIT 42.3 % (32.4-45.2); HEMOGLOBIN 14.2 GM/dL (10.7-15.3); LYMPH % 8.3 % (8-40); MCH 31.2 pg (25.7-33.7); MCHC 33.6 g/dl (32.0-36.0); MEAN CELL VOLUME 92.8 fl (80-96); MEAN PLT VOLUME 8.4 fl (7.5-11.1); MONO % 1.6 % (3.8-10.2); NEUT % 89.2 % (42.8-82.8); PLATELET COUNT 220 10^3/uL (134-434); RBC 4.56 M/mm3 (3.60-5.2); RDW 14.2 % (11.6-15.6); WHITE BLOOD COUNT 6.2 K/mm3 (4.0-10.0)
[2022-12-11] MEDS ORDERED: AZITHROMYCIN IVPB 500 MG in DEXTROSE 5%-WATER - 250 ML IVPB ONE (01:33)
[2022-12-11] MEDS ORDERED: CEFTRIAXONE 1,000 MG in DEXTROSE 5%-WATER - 50 ML IVPB ONE (01:33)
[2022-12-11] MEDS ORDERED: CEFTRIAXONE 1 GM/50 ML BAG ONE (01:45)
[2022-12-11] MEDS ORDERED: AZITHROMYCIN IVPB 500 MG/250 ML BAG IVPB ONE (01:46)
[2022-12-11 01:52] LABS: BILIRUBIN,TOTAL 0.4 mg/dL (0.2-1); BLOOD UREA NITROGEN 18.4 mg/dL (7-18); CALCIUM 8.4 mg/dL (8.5-10.1); CREATININE 0.8 mg/dL (0.55-1.3); N-TERMINAL BNP 107.2 pg/ml (5-125); POTASSIUM 3.4 mmol/L (3.5-5.1); TOT PROT 6.9 g/dl (6.4-8.2)
[2022-12-11] MEDS ORDERED: ALBUTEROL SO4 0.083% IH SOL 2.5 MG/3 ML VIAL.NEB. NEB ONE ×2 (03:03→03:13)
[2022-12-11] MEDS ORDERED: methaDONE HCL 10 MG TABLET PO SCH (10:45)
[2022-12-11] MEDS ORDERED: diazePAM 5 MG TABLET PO PRN (10:51)
[2022-12-11] MEDS ORDERED: POLYETHYLENE GLYCOL (HEALTHYLAX) 3350 17 GM PACKET PO ONE (11:00)
[2022-12-11] MEDS ORDERED: methaDONE HCL 40 MG DISPERSABLE TABLET ONE (11:06)
[2022-12-11] MEDS ORDERED: methaDONE HCL 10 MG TABLET ONE (11:06)
[2022-12-11] MEDS ORDERED: diazePAM 5 MG TABLET ONE ×4 (11:42→22:00)
[2022-12-11] MEDS ORDERED: POLYETHYLENE GLYCOL (HEALTHYLAX) 3350 17 GM PACKET ONE (11:42)
[2022-12-11] MEDS ORDERED: ALBUTEROL SO4 2.5/IPRATROPIUM 0.5 INH SOL 3 ML VIAL.NEB. NEB ONE ×3 (11:42→21:59)
[2022-12-11] MEDS: diazePAM 5 MG TABLET PO SCH ×3 (11:47→22:42)
[2022-12-11] MEDS: BENZONATATE 200 MG CAPSULE PO PRN (14:16)
[2022-12-11] MEDS ORDERED: NALOXONE HCL 0.4 MG/ML VIAL IM PRN (16:40)
[2022-12-11] MEDS ORDERED: LOPERAMIDE HCL 2 MG CAPSULE PO PRN (16:40)
[2022-12-11] MEDS ORDERED: ONDANSETRON *ODT* 4 MG TABLET SL PRN (16:40)
[2022-12-11] MEDS ORDERED: NALOXONE HCL (KLOXXADO) 8 MG SPRAY NS PRN (16:40)
[2022-12-11] MEDS ORDERED: MAG HYDROX/AL HYDROX/SIMETH 30 ML UNIT-DOSE CUP PO PRN (16:40)
[2022-12-11] MEDS ORDERED: ACETAMINOPHEN 325 MG TABLET (FP) PO PRN (16:40)
[2022-12-11] MEDS ORDERED: DICYCLOMINE HCL 10 MG CAPSULE PO PRN (16:40)
[2022-12-11] MEDS ORDERED: POLYETHYLENE GLYCOL (HEALTHYLAX) 3350 17 GM PACKET PO PRN (16:40)
[2022-12-11] MEDS ORDERED: IBUPROFEN 400 MG TABLET (FP) PO PRN (16:40)
[2022-12-11] MEDS ORDERED: BISMUTH SUBSALICYLATE 524 MG/30 ML PO PRN (16:40)
[2022-12-11] MEDS ORDERED: MAGNESIUM HYDROX 2400MG/30ML ORAL SUSPENSION 30 ML CUP PO PRN (16:40)
[2022-12-11] MEDS ORDERED: BACLOFEN 10 MG TABLET (FP) PO PRN (16:40)
[2022-12-11] MEDS ORDERED: IBUPROFEN 600 MG TABLET (FP) PO PRN (16:40)
[2022-12-11] MEDS ORDERED: hydrOXYzine PAMOATE 25 MG CAPSULE (FP) PO PRN (16:40)
[2022-12-11] MEDS ORDERED: THIAMINE HCL 100 MG TABLET (FP) ONE (21:59)
[2022-12-11] MEDS ORDERED: MELATONIN 5 MG TABLETS ONE (22:00)
[2022-12-11] MEDS ORDERED: DOCUSATE SODIUM 100 MG CAPSULE (FP) PO ONE (22:00)
[2022-12-11] MEDS ORDERED: ENOXAPARIN NA (PORCINE) 40 MG/0.4 ML DISP.SYRIN SQ ONE (22:01)
[2022-12-11] MEDS: MELATONIN 5 MG TABLETS PO SCH (22:41)
[2022-12-11] MEDS: ENOXAPARIN NA (PORCINE) 40 MG/0.4 ML DISP.SYRIN SQ SCH (22:41)
[2022-12-11] MEDS: INSULIN SLIDING SCALE (NOVOLOG) 1 VIAL SQ SCH (22:41)
[2022-12-11] MEDS: DOCUSATE SODIUM 100 MG CAPSULE (FP) PO SCH (22:41)
[2022-12-11] MEDS: THIAMINE HCL 100 MG TABLET (FP) PO SCH (22:42)
[2022-12-12] MEDS: guaiFENesin 600 MG TABLET.ER (FP) PO PRN ×4 (00:41→21:55)
[2022-12-12 02:35] VITALS: BMI 47.0
[2022-12-12] MEDS: diazePAM 5 MG TABLET PO SCH ×4 (06:05→22:08)
[2022-12-12] MEDS: INSULIN SLIDING SCALE (NOVOLOG) 1 VIAL SQ SCH ×4 (06:29→22:24)
[2022-12-12] MEDS: ALBUTEROL SO4 2.5/IPRATROPIUM 0.5 INH SOL 3 ML VIAL.NEB. NEB SCH ×4 (07:40→20:05)
[2022-12-12 07:43] LABS: BASO % 0.3 % (0-2.0); EOS % 0.3 % (0-4.5); HEMATOCRIT 40.5 % (32.4-45.2); HEMOGLOBIN 13.4 GM/dL (10.7-15.3); LYMPH % 21.7 % (8-40); MCH 31.2 pg (25.7-33.7); MCHC 33.2 g/dl (32.0-36.0); MEAN CELL VOLUME 94.1 fl (80-96); MEAN PLT VOLUME 8.1 fl (7.5-11.1); MONO % 9.6 % (3.8-10.2); NEUT % 68.1 % (42.8-82.8); PLATELET COUNT 214 10^3/uL (134-434); RDW 14.3 % (11.6-15.6); WHITE BLOOD COUNT 6.5 K/mm3 (4.0-10.0)
[2022-12-12 08:05] LABS: ALBUMIN 2.9 g/dl (3.4-5.0); BLOOD UREA NITROGEN 18.9 mg/dL (7-18); CALCIUM 8.3 mg/dL (8.5-10.1)
[2022-12-12 08:06] LABS: MAGNESIUM 2.1 mg/dL (1.8-2.4)
[2022-12-12 08:07] LABS: PHOSPHOROUS 3.2 mg/dL (2.5-4.9)
[2022-12-12 08:08] LABS: CREATININE 0.6 mg/dL (0.55-1.3); TOT PROT 6.3 g/dl (6.4-8.2)
[2022-12-12 08:09] LABS: BILIRUBIN,TOTAL 0.4 mg/dL (0.2-1)
[2022-12-12] MEDS ORDERED: POTASSIUM CHLORIDE ORAL LIQUID 20 MEQ/15 ML PO ONE ×2 (09:00→14:34)
[2022-12-12] MEDS: ENOXAPARIN NA (PORCINE) 40 MG/0.4 ML DISP.SYRIN SQ SCH ×2 (09:15→21:56)
[2022-12-12] MEDS ORDERED: PNEUMOC 20-VAL CONJ-DIP CRM/PF 0.5 ML SYRINGE IM ONE (10:00)
[2022-12-12] MEDS ORDERED: FLU VACCINE (FLULAVAL) PF 60 MCG/0.5 ML SYRINGE 2023-2024 IM ONE (10:00)
[2022-12-12] MEDS ORDERED: predniSONE 20 MG TABLET (UD) PO SCH (10:00)
[2022-12-12] MEDS ORDERED: INSULIN (NOVOLOG) ASPART 100 UNITS/ML 10ML VIAL ONE ×3 (11:18→22:19)
[2022-12-12] MEDS ORDERED: HYDROCHLOROTHIAZIDE 12.5 MG CAPSULE (FP) PO SCH (15:30)
[2022-12-12] MEDS: amLODIPine BESYLATE 10 MG TABLET (FP) PO SCH (15:51)
[2022-12-12] MEDS: methylPREDNISolone NA SUCC 40 MG/1 ML VIAL IVPUSH SCH ×2 (15:51→17:21)
[2022-12-12] MEDS: PRENATAL VITAMINS W/ FOLIC ACID TABLET (FP) PO SCH (17:05)
[2022-12-12] MEDS: MELATONIN 5 MG TABLETS PO SCH (21:55)
[2022-12-12] MEDS: LACTULOSE 20 GM/30 ML UDC (FOR ORAL USE ONLY) PO SCH (21:55)
[2022-12-12] MEDS: THIAMINE HCL 100 MG TABLET (FP) PO SCH (21:55)
[2022-12-12] MEDS: DOCUSATE SODIUM 100 MG CAPSULE (FP) PO SCH (21:55)
[2022-12-12] MEDS: BUDESONIDE/FORMETEROL FUMARATE 160/4.5 mcg INHALER IH SCH (21:57)
[2022-12-13] MEDS: methylPREDNISolone NA SUCC 40 MG/1 ML VIAL IVPUSH SCH ×3 (03:02→18:02)
[2022-12-13] MEDS: LACTULOSE 20 GM/30 ML UDC (FOR ORAL USE ONLY) PO SCH ×3 (06:22→21:51)
[2022-12-13] MEDS: INSULIN SLIDING SCALE (NOVOLOG) 1 VIAL SQ SCH ×4 (06:23→22:58)
[2022-12-13] MEDS: diazePAM 5 MG TABLET PO SCH ×3 (06:23→21:51)
[2022-12-13] MEDS: BENZONATATE 200 MG CAPSULE PO PRN ×2 (06:49→16:49)
[2022-12-13] MEDS: PRENATAL VITAMINS W/ FOLIC ACID TABLET (FP) PO SCH (09:00)
[2022-12-13] MEDS: ENOXAPARIN NA (PORCINE) 40 MG/0.4 ML DISP.SYRIN SQ SCH ×2 (09:00→21:52)
[2022-12-13] MEDS: amLODIPine BESYLATE 10 MG TABLET (FP) PO SCH (09:00)
[2022-12-13] MEDS: BUDESONIDE/FORMETEROL FUMARATE 160/4.5 mcg INHALER IH SCH (09:01)
[2022-12-13] MEDS: guaiFENesin 600 MG TABLET.ER (FP) PO PRN ×2 (09:01→20:18)
[2022-12-13] MEDS: ALBUTEROL SO4 2.5/IPRATROPIUM 0.5 INH SOL 3 ML VIAL.NEB. NEB SCH ×4 (09:48→20:18)
[2022-12-13] MEDS ORDERED: methaDONE HCL 10 MG TABLET PO SCH (10:00)
[2022-12-13] MEDS ORDERED: INSULIN (NOVOLOG) ASPART 100 UNITS/ML 10ML VIAL ONE ×2 (12:06→16:47)
[2022-12-13] MEDS: DOCUSATE SODIUM 100 MG CAPSULE (FP) PO SCH (21:52)
[2022-12-13] MEDS: THIAMINE HCL 100 MG TABLET (FP) PO SCH (21:52)
[2022-12-13] MEDS: MELATONIN 5 MG TABLETS PO SCH (21:52)
[2022-12-14] MEDS: BUDESONIDE/FORMETEROL FUMARATE 160/4.5 mcg INHALER IH SCH ×3 (00:56→21:22)
[2022-12-14] MEDS: methylPREDNISolone NA SUCC 40 MG/1 ML VIAL IVPUSH SCH ×3 (01:00→17:24)
[2022-12-14] MEDS: POTASSIUM CHLORIDE TABS 20 MEQ TABLET.ER (FP) PO SCH ×2 (01:00→09:54)
[2022-12-14] MEDS: BENZONATATE 200 MG CAPSULE PO PRN (04:05)
[2022-12-14] MEDS: BENZOCAINE/MENTHOL (CHLORASEPTIC ) LOZENGE MM PRN ×2 (04:06→20:01)
[2022-12-14] MEDS ORDERED: guaiFENesin 600 MG TABLET.ER (FP) PO ONE (05:45)
[2022-12-14] MEDS: diazePAM 5 MG TABLET PO SCH ×2 (06:18→17:25)
[2022-12-14] MEDS: LACTULOSE 20 GM/30 ML UDC (FOR ORAL USE ONLY) PO SCH ×3 (06:22→21:21)
[2022-12-14] MEDS: INSULIN SLIDING SCALE (NOVOLOG) 1 VIAL SQ SCH ×4 (06:30→21:26)
[2022-12-14] MEDS: ALBUTEROL SO4 2.5/IPRATROPIUM 0.5 INH SOL 3 ML VIAL.NEB. NEB SCH ×4 (07:45→20:32)
[2022-12-14] MEDS: PRENATAL VITAMINS W/ FOLIC ACID TABLET (FP) PO SCH (09:54)
[2022-12-14] MEDS: amLODIPine BESYLATE 10 MG TABLET (FP) PO SCH (09:54)
[2022-12-14] MEDS: ENOXAPARIN NA (PORCINE) 40 MG/0.4 ML DISP.SYRIN SQ SCH ×2 (09:54→21:20)
[2022-12-14] MEDS: MELATONIN 5 MG TABLETS PO SCH (21:21)
[2022-12-14] MEDS: DOCUSATE SODIUM 100 MG CAPSULE (FP) PO SCH (21:21)
[2022-12-14] MEDS ORDERED: INSULIN (NOVOLOG) ASPART 100 UNITS/ML 10ML VIAL ONE (21:26)
[2022-12-14] MEDS: THIAMINE HCL 100 MG TABLET (FP) PO SCH (21:28)
[2022-12-15] MEDS: methylPREDNISolone NA SUCC 40 MG/1 ML VIAL IVPUSH SCH ×3 (01:05→17:17)
[2022-12-15] MEDS ORDERED: diazePAM 5 MG TABLET PO ONE (06:00)
[2022-12-15] MEDS ORDERED: INSULIN (NOVOLOG) ASPART 100 UNITS/ML 10ML VIAL ONE ×4 (06:06→21:21)
[2022-12-15] MEDS: LACTULOSE 20 GM/30 ML UDC (FOR ORAL USE ONLY) PO SCH ×3 (06:10→21:26)
[2022-12-15] MEDS: INSULIN SLIDING SCALE (NOVOLOG) 1 VIAL SQ SCH ×4 (06:17→21:33)
[2022-12-15 07:39] LABS: BASO % 0.1 % (0-2.0); HEMATOCRIT 42.6 % (32.4-45.2); HEMOGLOBIN 14.3 GM/dL (10.7-15.3); LYMPH % 8.7 % (8-40); MCH 31.7 pg (25.7-33.7); MCHC 33.7 g/dl (32.0-36.0); MEAN PLT VOLUME 8.6 fl (7.5-11.1); MONO % 3.4 % (3.8-10.2); NEUT % 87.8 % (42.8-82.8); PLATELET COUNT 201 10^3/uL (134-434); RBC 4.53 M/mm3 (3.60-5.2); RDW 13.2 % (11.6-15.6)
[2022-12-15 07:56] LABS: POTASSIUM 4.7 mmol/L (3.5-5.1)
[2022-12-15] MEDS: ALBUTEROL SO4 2.5/IPRATROPIUM 0.5 INH SOL 3 ML VIAL.NEB. NEB SCH ×4 (08:00→20:13)
[2022-12-15 08:10] LABS: BLOOD UREA NITROGEN 15.9 mg/dL (7-18); CALCIUM 8.1 mg/dL (8.5-10.1)
[2022-12-15 08:13] LABS: CREATININE 0.8 mg/dL (0.55-1.3)
[2022-12-15 08:15] LABS: BILIRUBIN,TOTAL 0.6 mg/dL (0.2-1); TOT PROT 6.8 g/dl (6.4-8.2)
[2022-12-15] MEDS: ENOXAPARIN NA (PORCINE) 40 MG/0.4 ML DISP.SYRIN SQ SCH ×2 (09:20→21:27)
[2022-12-15] MEDS: PRENATAL VITAMINS W/ FOLIC ACID TABLET (FP) PO SCH (09:20)
[2022-12-15] MEDS: amLODIPine BESYLATE 10 MG TABLET (FP) PO SCH (09:20)
[2022-12-15] MEDS: BUDESONIDE/FORMETEROL FUMARATE 160/4.5 mcg INHALER IH SCH ×2 (09:25→21:39)
[2022-12-15] MEDS ORDERED: guaiFENesin/D-M SUGAR-FREE/ACLHOL-FREE (200 MG/10 MG) 5 ML PO PRN (11:43)
[2022-12-15] MEDS: DOCUSATE SODIUM 100 MG CAPSULE (FP) PO SCH (21:27)
[2022-12-15] MEDS: THIAMINE HCL 100 MG TABLET (FP) PO SCH (21:27)
[2022-12-15] MEDS: MELATONIN 5 MG TABLETS PO SCH (21:27)
[2022-12-15] MEDS: BENZOCAINE/MENTHOL (CHLORASEPTIC ) LOZENGE MM PRN (22:11)
[2022-12-16] MEDS: methylPREDNISolone NA SUCC 40 MG/1 ML VIAL IVPUSH SCH ×3 (02:00→21:10)
[2022-12-16] MEDS: LACTULOSE 20 GM/30 ML UDC (FOR ORAL USE ONLY) PO SCH ×3 (05:51→21:10)
[2022-12-16] MEDS ORDERED: INSULIN (NOVOLOG) ASPART 100 UNITS/ML 10ML VIAL ONE (06:00)
[2022-12-16] MEDS: INSULIN SLIDING SCALE (NOVOLOG) 1 VIAL SQ SCH ×4 (06:04→21:11)
[2022-12-16] MEDS: INSULIN (LEVEMIR) 100 UNITS/ML UNITS SQ SCH (06:04)
[2022-12-16 07:31] LABS: BASO % 0.1 % (0-2.0); EOS % 0.1 % (0-4.5); HEMATOCRIT 42.7 % (32.4-45.2); HEMOGLOBIN 14.6 GM/dL (10.7-15.3); LYMPH % 7.3 % (8-40); MCH 31.8 pg (25.7-33.7); MCHC 34.1 g/dl (32.0-36.0); MEAN CELL VOLUME 93.1 fl (80-96); MEAN PLT VOLUME 8.7 fl (7.5-11.1); MONO % 3.6 % (3.8-10.2); NEUT % 88.9 % (42.8-82.8); PLATELET COUNT 193 10^3/uL (134-434); RBC 4.59 M/mm3 (3.60-5.2); RDW 13.4 % (11.6-15.6); WHITE BLOOD COUNT 8.6 K/mm3 (4.0-10.0)
[2022-12-16 07:48] LABS: POTASSIUM 4.1 mmol/L (3.5-5.1)
[2022-12-16] MEDS: ALBUTEROL SO4 2.5/IPRATROPIUM 0.5 INH SOL 3 ML VIAL.NEB. NEB SCH ×4 (07:50→19:56)
[2022-12-16 07:56] LABS: CALCIUM 8.1 mg/dL (8.5-10.1)
[2022-12-16 07:57] LABS: BLOOD UREA NITROGEN 14.9 mg/dL (7-18)
[2022-12-16 08:00] LABS: CREATININE 0.6 mg/dL (0.55-1.3)
[2022-12-16 08:01] LABS: BILIRUBIN,TOTAL 0.6 mg/dL (0.2-1)
[2022-12-16 08:02] LABS: TOT PROT 6.7 g/dl (6.4-8.2)
[2022-12-16] MEDS: amLODIPine BESYLATE 10 MG TABLET (FP) PO SCH (09:34)
[2022-12-16] MEDS: ENOXAPARIN NA (PORCINE) 40 MG/0.4 ML DISP.SYRIN SQ SCH ×2 (09:34→21:10)
[2022-12-16] MEDS: BUDESONIDE/FORMETEROL FUMARATE 160/4.5 mcg INHALER IH SCH ×2 (09:35→21:11)
[2022-12-16] MEDS: PRENATAL VITAMINS W/ FOLIC ACID TABLET (FP) PO SCH (09:37)
[2022-12-16] MEDS: THIAMINE HCL 100 MG TABLET (FP) PO SCH (21:10)
[2022-12-16] MEDS: MELATONIN 5 MG TABLETS PO SCH (21:10)
[2022-12-16] MEDS: DOCUSATE SODIUM 100 MG CAPSULE (FP) PO SCH (21:10)
[2022-12-17 00:22] VITALS: RESP 20
[2022-12-17] MEDS: INSULIN (LEVEMIR) 100 UNITS/ML UNITS SQ SCH (05:59)
[2022-12-17] MEDS: LACTULOSE 20 GM/30 ML UDC (FOR ORAL USE ONLY) PO SCH (06:00)
[2022-12-17] MEDS: INSULIN SLIDING SCALE (NOVOLOG) 1 VIAL SQ SCH ×2 (06:00→11:47)
[2022-12-17 06:21] VITALS: TEMP 98.1
[2022-12-17] MEDS: ALBUTEROL SO4 2.5/IPRATROPIUM 0.5 INH SOL 3 ML VIAL.NEB. NEB SCH ×2 (08:18→12:27)
[2022-12-17] MEDS: ENOXAPARIN NA (PORCINE) 40 MG/0.4 ML DISP.SYRIN SQ SCH (09:59)
[2022-12-17] MEDS: amLODIPine BESYLATE 10 MG TABLET (FP) PO SCH (10:00)
[2022-12-17] MEDS ORDERED: predniSONE 20 MG TABLET (UD) PO SCH (10:00)
[2022-12-17] MEDS: PRENATAL VITAMINS W/ FOLIC ACID TABLET (FP) PO SCH (10:00)
[2022-12-17 10:24] VITALS: BP 154/101; PULSE 73
[2022-12-17] MEDS: BUDESONIDE/FORMETEROL FUMARATE 160/4.5 mcg INHALER IH SCH (10:42)
== END 2022-12-17 14:04 | disposition home or self-care (01) | DRG 140 ==
LOC: JER 22:04 → JERBED 12-11 01:27 → J4W 12-12 00:34
PROVIDERS: ADMIT Internal Medicine; ATTEND Internal Medicine
DX: J44.1 Chronic obstructive pulmonary disease with (acute) exacerbation (principal); J96.01 Acute respiratory failure with hypoxia; E66.01 Morbid (severe) obesity due to excess calories; Z68.42 Body mass index [BMI] 45.0-49.9, adult; F11.20 Opioid dependence, uncomplicated; E11.9 Type 2 diabetes mellitus without complications; F17.210 Nicotine dependence, cigarettes, uncomplicated; I10 Essential (primary) hypertension; F31.9 Bipolar disorder, unspecified; E87.6 Hypokalemia; K59.00 Constipation, unspecified; G47.33 Obstructive sleep apnea (adult) (pediatric); F10.230 Alcohol dependence with withdrawal, uncomplicated
CPT/HCPCS: 0241U-QW; 36415; 71045-TC-FY; 71275-TC; 74174-TC; 80053; 82962; 83735; 83880; 84100; 84484; 85025; 90677; 90686; 93005; 93010; 93306-TC; 94010; 94640; 94761; 99285-25; G0008